=== PATIENT | female | born 1975 | race Two or more races ===

== ENCOUNTER → 2016-08-26 | Outpatient (CLI) | payer BC ==
[~2016-08-26] MED LIST: NORCO 5-325 MG1 TAB PO
== END | disposition disaster alternative care site (69) ==
LOC: GRAD 08:30
DX: C50.411 Malignant neoplasm of upper-outer quadrant of right female breast (principal)

== ENCOUNTER → 2017-01-04 | Outpatient (CLI) | payer BC | END | disposition disaster alternative care site (69) | LOC: GRAD 09:06 | DX: N60.19 Diffuse cystic mastopathy of unspecified breast (principal); Z85.3 Personal history of malignant neoplasm of breast | CPT/HCPCS: A9577; C8908 ==